=== PATIENT | male | born 1970 | race Caucasian/White ===

== ENCOUNTER 2019-08-27 09:06 | Day surgery (SDC) | payer BC ==
[2019-08-22 14:37] LABS: BASOPHILS % (AUTO) 0.3 % (0-1); EOSINOPHILS # (AUTO) 0.2 X10'3 (0-0.9); EOSINOPHILS % (AUTO) 2.4 % (0-6); LYMPHOCYTES # (AUTO) 3.4 X10'3 (1.1-4.8); LYMPHOCYTES % (AUTO) 36.3 % (21-51); MEAN CORPUSCULAR HEMOGLOBIN 31.3 PG (27.0-31.0); MEAN CORPUSCULAR HGB CONC 34.3 g/dL (33.0-36.5); MEAN CORPUSCULAR VOLUME 91.4 FL (78-98); MEAN PLATELET VOLUME 6.7 FL (7.4-10.4); MONOCYTES # (AUTO) 0.7 X10'3 (0-0.9); MONOCYTES % (AUTO) 7.6 % (2-12); NEUTROPHILS % (AUTO) 53.4 % (42-75); PRE OP HEMATOCRIT 46.7 % (42.0-52.0); PRE OP PLATELET COUNT 267 X10'3 (140-440); RED BLOOD COUNT 5.11 X10'6 (4.70-6.10); RED CELL DISTRIBUTION WIDTH 13.2 % (11.5-14.5)
[2019-08-22 14:48] LABS: PRE OP PROTIME 10.8 SECONDS (9.0-12.0)
[2019-08-22 14:53] LABS: ALBUMIN 3.9 G/DL (3.4-5.0); ALBUMIN/GLOBULIN RATIO 1.2 (1.1-1.5); ALKALINE PHOSPHATASE 69 IU/L (46-116); BLOOD UREA NITROGEN 19 MG/DL (7-18); BUN/CREATININE RATIO 26.8 (5.4-32.0); CALCIUM 9.3 MG/DL (8.5-10.1); CHLORIDE 108 MMOL/L (99-107); CREATININE 0.71 MG/DL (0.60-1.10); PRE OP ALT 36 U/L (30-65); PRE OP ANION GAP 9 (8-16); PRE OP AST 25 U/L (10-37); PRE OP BILIRUB, TOTAL 0.4 MG/DL (0.0-1.0); PRE OP GLUCOSE 99 MG/DL (70-104); PRE OP POTASSIUM 3.7 MMOL/L (3.4-5.1); PRE OP SODIUM 142 MMOL/L (135-145); TOTAL CARBON DIOXIDE 25.3 MMOL/L (24-32); TOTAL PROTEIN 7.2 G/DL (6.4-8.2); eGFR > 90 ML/MIN
[2019-08-27] VITALS (11 sets, daily range): BP systolic 115–151; BP diastolic 64–89
[~2019-08-27] VITALS: Ht 180.3 cm; Wt 116.6 kg
[~2019-08-27 09:06] MED LIST: DILT360C38 PO; albuterol 2.5 MG/3 ML nebule NEB ONE; famotidine 20mg tablet PO ONE; ringers solution, lacted 1,000 ML IV SCH
[2019-08-27] MEDS ORDERED: LIDOcaine 1% W/epiNEPHrine 1:100,000 20ml vial ONE (09:13)
[2019-08-27] MEDS ORDERED: BUPIVAcaine 0.5% W/EPI /PF 30ml vial ONE (09:13)
[2019-08-27] MEDS ORDERED: oxymetazoline 15 ML nasal spray NS ONE (09:13)
[2019-08-27] MEDS ORDERED: mupirocin 2% ointment 22GM ONE (09:13)
[2019-08-27] MEDS ORDERED: cocaine 4% topical solution 4ml bottle ONE (12:07)
[2019-08-27] MEDS ORDERED: methylPREDNISolone acetate 80mg/ml inj**IM only ONE (12:07)
[2019-08-27] MEDS ORDERED: cefTAZidime 1gm inj ONE (12:08)
[2019-08-27] MEDS ORDERED: fentaNYL/PF 50MCG/1 ML 2ML syringe ONE ×2 (12:52→13:17)
[2019-08-27] MEDS ORDERED: midazolam 2 mg/2 ml injection ONE (12:52)
[2019-08-27] MEDS ORDERED: rocuronium 10mg/ml inj IV ONE (13:21)
[2019-08-27] MEDS ORDERED: ondansetron/PF 4mg/2ml inj ONE (13:21)
[2019-08-27] MEDS ORDERED: propofol inj 20 ML IV ONE (13:21)
[2019-08-27] MEDS ORDERED: neostigmine methylsulfate 1 MG/ML 10ml vial ONE (13:21)
[2019-08-27] MEDS ORDERED: glycopyrrolate 0.2mg/ml inj ONE (13:21)
[2019-08-27] MEDS ORDERED: LIDOcaine 2% (20mg/ml) 5ml vial ONE (13:21)
[2019-08-27] MEDS ORDERED: dexamethasone sod phosphate 4mg/ml inj. ONE (13:21)
[2019-08-27] MEDS ORDERED: ringers solution, lacted 1,000 ML IV SCH (14:37)
[2019-08-27] MEDS ORDERED: morphine 4 MG/ML inj SYRINge IV PRN (14:40)
[2019-08-27] MEDS ORDERED: ondansetron/PF 4mg/2ml inj IV PRN ×2 (14:40→17:00)
[2019-08-27] MEDS ORDERED: morphine 2 MG/ML inj. syringe IV PRN (14:40)
[2019-08-27] MEDS ORDERED: meperidine/PF 25mg/ml syringe IV PRN ×3 (14:40)
[2019-08-27] MEDS ORDERED: proCHLORperazine 10 MG/2 ml inj IV PRN (14:40)
--- NOTE | 2019-08-27 15:56 | NUR ---
Received from OR via [facility], accompanied by Anesthesiologist DR HOPKINS and report given by Anesthesiologist. PT DROWSY, NO S/S OF DISTRESS/DISCOMFORT, COTTONOIDS IN BILAT NARES INTACT. PT AWAKENED WILD AND THRASHING ABOUT IN BED, NOSE W/SMALL BLOODY DRAINAGE. PT C/O LEFT SHOULDER PAIN, DR RUIZ IN AND UPDATED, AWARE, NO ORDERS. Addendum: 08/27/19 at 1639 by Triny Morfin RN Amended: Links added.
[2019-08-27] MEDS ORDERED: salt irrigation nasal spray 45 ML SPRAY NS PRN (16:55)
[2019-08-27] MEDS ORDERED: oxymetazoline 15 ML nasal spray NS SCH (16:58)
[2019-08-27] MEDS ORDERED: HYDROcodone/acetaminophen 5mg/325mg tablet PO ONE (17:05)
--- NOTE | 2019-08-27 17:36 | NUR ---
PT WAS MEDICATED FOR LEFT SHOULDER PAIN AND D/C INSTRUCTIONS GIVEN AND GONE OVER W/PT AND PTS S/O WHO VERBALIZED UNDERSTANDING BY RN, PT D/C D TO HOME VIA W/C TO PRIVATE VEHICLE W/O INCIDENT. Addendum: 08/27/19 at 1759 by Triny Morfin RN Amended: Links added.
== END 2019-08-27 17:36 | disposition home or self-care (01) ==
LOC: PAS 09:06
PROVIDERS: ATTEND Otolaryngology
DX: J34.2 Deviated nasal septum (principal); J34.3 Hypertrophy of nasal turbinates; J32.8 Other chronic sinusitis; J33.8 Other polyp of sinus; J34.89 Other specified disorders of nose and nasal sinuses; G47.30 Sleep apnea, unspecified; I10 Essential (primary) hypertension; K21.9 Gastro-esophageal reflux disease without esophagitis; F41.9 Anxiety disorder, unspecified; E66.9 Obesity, unspecified; Z98.890 Other specified postprocedural states; Z79.899 Other long term (current) drug therapy; F17.210 Nicotine dependence, cigarettes, uncomplicated; Z72.89 Other problems related to lifestyle; Z68.35 Body mass index [BMI] 35.0-35.9, adult; Z79.01 Long term (current) use of anticoagulants
CPT/HCPCS: 30140; 30520; 31240; 31253; 31259; 31267; 36415; 61782; 80053; 82948; 85025; 85576; 85610; 85730; A6402; C9250; J0713; J1040; J1100; J2001; J2250; J2405; J2704; J2710; J3010; J7040; J7120; A4618; A7000; J3490

== ENCOUNTER 2022-11-10 06:11 | Day surgery (SDC) | payer BC ==
[~2022-11-10] VITALS: Ht 180.3 cm; Wt 116.7 kg
[2022-11-10] VITALS (11 sets, daily range): BP systolic 120–161; BP diastolic 81–106
[~2022-11-10 06:11] MED LIST changes: -albuterol 2.5 MG/3 ML nebule NEB ONE; -famotidine 20mg tablet PO ONE; -ringers solution, lacted 1,000 ML IV SCH
[2022-11-10] MEDS ORDERED: normal saline 1,000 ML IV SCH (06:40)
[2022-11-10] MEDS ORDERED: diphenhydrAMINE 25mg capsule PO PRN (06:40)
[2022-11-10] MEDS ORDERED: LORazepam 0.5 MG tablet PO PRN (06:40)
[2022-11-10] MEDS ORDERED: OMEG1CAP91 PO (06:42)
[2022-11-10] MEDS ORDERED: TUME1CAP PO (06:42)
[2022-11-10] MEDS ORDERED: ASPI-500 PO (06:42)
[2022-11-10] MEDS ORDERED: MAGN200T PO (06:42)
[2022-11-10] MEDS ORDERED: midazolam 1 mg/ML 2ml injection ONE ×2 (07:20→08:34)
[2022-11-10] MEDS ORDERED: LIDOcaine 1% (10mg/ml) 2ml vial ONE (07:20)
[2022-11-10] MEDS ORDERED: nitroGLYCERIN-Tridil 50MG/D5W 250 ML IV ONE (07:20)
[2022-11-10] MEDS ORDERED: verapamil 2.5 mg/ml inj IV ONE (07:20)
[2022-11-10 07:21] LABS: BASOPHILS % (AUTO) 0.5 % (0-1); EOSINOPHILS # (AUTO) 0.2 X10'3 (0-0.9); EOSINOPHILS % (AUTO) 3.4 % (0-6); HEMATOCRIT 49.2 % (42.0-52.0); HEMOGLOBIN 16.8 g/dl (14.0-17.9); LYMPHOCYTES # (AUTO) 3.1 X10'3 (1.1-4.8); LYMPHOCYTES % (AUTO) 43.4 % (21-51); MEAN CORPUSCULAR HEMOGLOBIN 30.9 PG (27.0-31.0); MEAN CORPUSCULAR HGB CONC 34.2 g/dL (33.0-36.5); MEAN CORPUSCULAR VOLUME 90.4 FL (78-98); MEAN PLATELET VOLUME 7.1 FL (7.4-10.4); MONOCYTES # (AUTO) 0.8 X10'3 (0-0.9); MONOCYTES % (AUTO) 10.9 % (2-12); NEUTROPHILS % (AUTO) 41.8 % (42-75); PLATELET COUNT 218 X10'3 (140-440); RED BLOOD COUNT 5.44 X10'6 (4.70-6.10); WHITE BLOOD COUNT 7.2 X10'3 (4.5-11.0)
[2022-11-10] MEDS ORDERED: iohexol 350MG/ML 100ml bottle IV ONE (07:21)
[2022-11-10] MEDS ORDERED: iohexol 350 MG/ML 50ML vial IV ONE (07:21)
[2022-11-10] MEDS ORDERED: fentaNYL/PF 50MCG/1 ML 2ML syringe ONE (07:21)
[2022-11-10] MEDS ORDERED: heparin 1,000unit/ml 10ml vial 10 ML ONE (07:21)
[2022-11-10 07:29] LABS: ALBUMIN 3.9 G/DL (3.4-5.0); ANION GAP 10 (8-16); BLOOD UREA NITROGEN 20 MG/DL (7-18); BUN/CREATININE RATIO 23.3 (10.0-20.0); CALCIUM 9.1 MG/DL (8.5-10.1); CHLORIDE 105 MMOL/L (99-107); CREATININE 0.86 MG/DL (0.60-1.10); GLUCOSE 87 MG/DL (70-104); POTASSIUM 3.9 MMOL/L (3.5-5.1); SODIUM 140 MMOL/L (135-145); TOTAL CARBON DIOXIDE 24.8 MMOL/L (24-32); eGFR > 90 ML/MIN
[2022-11-10 07:33] LABS: APTT 26 SECONDS (22-32)
[2022-11-10] MEDS ORDERED: LIDOcaine 1% 30ml preserv. free vial ONE (08:34)
[2022-11-10 11:22] LABS: ISTAT HGB ART 15.6 g/dl (14.0-17.9); ISTAT Hct ART 46 %PCV (42-52); ISTAT O2 SATURATION ARTERIAL 94 % (95-98); ISTAT SOURCE BLNK
[2022-11-10 11:23] LABS: ISTAT Hct MIX 47 %PCV (42-52); ISTAT O2 SATURATION MIX VENOUS 67 % (60-80); ISTAT SOURCE BLNK
== END 2022-11-10 14:55 | disposition home or self-care (01) ==
LOC: SSTAY O 06:11
PROVIDERS: ATTEND Internal Medicine Cardiovascular Disease
DX: R07.89 Other chest pain (principal); R06.02 Shortness of breath; I25.10 Atherosclerotic heart disease of native coronary artery without angina pectoris; I10 Essential (primary) hypertension; E66.9 Obesity, unspecified; Z68.35 Body mass index [BMI] 35.0-35.9, adult; Z79.82 Long term (current) use of aspirin; Z79.899 Other long term (current) drug therapy
CPT/HCPCS: 36415; 76937; 80048; 82803; 85014; 85025; 85610; 85730; 93460; 99152; 99153; J1644; J2250; J3010; J3490; J7030; Q0163; Q9967; A6258; A6449; C1725; C1751; C1894